=== PATIENT | male | born 1955 | race Two or more races ===

== ENCOUNTER 2022-08-20 00:50 | Emergency (ER) | payer MEDICARE, OTHER ==
[~2022-08-20] VITALS: Ht 175.3 cm; Wt 72.7 kg
[2022-08-20 01:30] LABS: MEAN CORPUSCULAR VOLUME 86.1 fL (73.0-96.2); PLATELET COUNT (AUTO) 442 K/uL (152-348)
--- NOTE | 2022-08-20 01:38 | NUR ---
Dr Dwyer pronounced patient at [id number].
[2022-08-20 01:58] LABS: ALANINE AMINOTRANSFERASE 296 U/L (16-63); ALKALINE PHOSPHATASE 219 U/L (50-136); ASPARTATE AMINOTRANSFERASE 358 U/L (15-37); BILIRUBIN,DIRECT 0.6 mg/dL (0.0-0.2); BILIRUBIN,TOTAL 1.3 mg/dL (0.2-1.0); CARBON DIOXIDE 18 mmol/L (21-32); CHLORIDE 121 mmol/L (98-107); GLUCOSE 128 mg/dL (74-106); TOTAL PROTEIN, SERUM 9.2 g/dL (6.4-8.2)
--- NOTE | 2022-08-20 01:59 | NUR ---
Called [facility] and spoke to Alana and stated patient does not meet [facility] donor criteria. Gave case # of [id number].
[2022-08-20 02:02] LABS: CREATININE 8.8 mg/dL (0.6-1.3); POTASSIUM 6.7 mmol/L (3.5-5.1); UREA NITROGEN, BLOOD 166 mg/dL (7-18)
--- NOTE | 2022-08-20 02:05 | NUR ---
Post mortem care done.
--- NOTE | 2022-08-20 02:10 | NUR ---
Patient's relatives at bedside
--- NOTE | 2022-08-20 02:38 | NUR ---
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
--- NOTE | 2022-08-20 03:02 | NUR ---
Called patient's daughter, Ashly Medley who states she will call nursing office once she has mortuary infomation. She request, patient's body be transported to hospital's morgue.
--- NOTE | 2022-08-20 04:16 | NUR ---
Patient taken to the [facility] accompanied by Dulce Maria HAMMOND, Debora alarm security or surveillance monitor and Mg NUNEZ
== END 2022-08-20 04:18 ==
LOC: ER 00:52
DX: I46.9 Cardiac arrest, cause unspecified (principal); J96.00 Acute respiratory failure, unspecified whether with hypoxia or hypercapnia; R07.89 Other chest pain
CPT/HCPCS: 36415; 71045; 83605; 84484; 85025; 85730; 87040; 93005; A4663